=== PATIENT | male | born 1990 | race Caucasian/White ===

== ENCOUNTER 2018-05-12 23:17 | Emergency (ER) | payer BC ==
[~2018-05-12] VITALS: Ht 188 cm; Wt 95.3 kg
[2018-05-12 23:26] VITALS: BP 159/111
[2018-05-12] MEDS ORDERED: AUGMENTIN 875-125 TABLET PO STA (23:41)
--- NOTE | 2018-05-12 23:44 | ER.PDOC ---
General Chief Complaint: Earache Stated Complaint: EARACHE Time seen by MD: 23:41 Source: patient Exam Limitations: no limitations History of Present Illness Initial Comments Right earache for 1 week. Severity: moderate Location of Pain: (R) Ear Associated Symptoms: sharp earache Allergies: Coded Allergies: No Known Allergies (Unverified , 08/02/13) Home Meds No Active Prescriptions or Reported Meds Past Medical History Medical History: no pertinent history Surgical History: no surgical history Social History Smoking: non-smoker Alcohol Use: occassionally Drug Use: none Constitutional: no symptoms reported Ears: see HPI Mouth: no symptoms reported Throat: no symptoms reported Respiratory: no symptoms reported Cardiovascular: no symptoms reported Gastrointestinal: no symptoms reported All Other Systems: Reviewed and Negative Physical Exam General Appearance: alert, no distress Ears: auricle TM's: erythema (R(, dullness (fluid right ear) Mouth/Throat: lips/gums nml, pharynx nml Nose: nml inspection Head/Neck: atraumatic, neck nml inspection Eyes: eyes nml inspection, PERRL, no nystagmus Resp/CVS: no resp distress, lungs clear, heart sounds nml, reg. rate & rhythm Abdomen: non-tender, no organomegaly Skin Exam: Normal Color, Warm/Dry NEURO/PSYCH: oriented X3, mood/effect nml Departure Time of Disposition: 23:43 Disposition: 01 HOME, SELF-CARE Impression: Primary Impression: Otitis media Qualified Codes: H66.90 - Otitis media, unspecified, unspecified ear Condition: Stable Referrals: PCP,UNKNOWN (PCP) PRIMARY CARE PROVIDER Additional Instructions: Amoxil Cortisporin Otic Ibuprofen F/U with your PCP next week. Scripts No Active Prescriptions or Reported Meds Duration or Time Spent with Pa: 20 mins ADAM CHOWDHURY MD May 12, 2018 23:44
[2018-05-12] MEDS ORDERED: AUGMENTIN 875-125 TABLET ONE (23:49)
[2018-05-12 23:59] VITALS: BP 159/111
== END 2018-05-12 23:58 | disposition home or self-care (01) ==
LOC: ER 23:17
DX: H66.91 Otitis media, unspecified, right ear (principal)
CPT/HCPCS: 96361; 96374; 99283; 99285

== ENCOUNTER 2019-03-22 07:41 | Emergency (ER) | payer BC ==
[~2019-03-22] VITALS: Ht 188 cm; Wt 95.3 kg
[2019-03-22 07:56] VITALS: BP 177/106
--- NOTE | 2019-03-22 07:58 | ER.PDOC ---
General Chief Complaint: Earache Stated Complaint: RIGHT EAR PAIN Time seen by MD: 08:00 Source: patient Exam Limitations: no limitations History of Present Illness Timing/Duration: gradual Severity: mild Location of Pain: (R) Ear Associated Symptoms: dull earache Prior symptoms/Treatment: Similar symptoms previous Allergies: Coded Allergies: No Known Allergies (Unverified , 08/02/13) Home Meds No Active Prescriptions or Reported Meds Past Medical History Medical History: no pertinent history, other (OM) Surgical History: no surgical history Social History Smoking: non-smoker Alcohol Use: none Drug Use: none Reviewed Nursing Reviewed: Vital Signs, Abn. Noted All Other Systems: Reviewed and Negative Physical Exam Ears: auricle, external. canal nml TM's: erythema (R(, loss of landmarks (R), bulging of TM (R), fluid/blood behind TM (R) Mouth/Throat: lips/gums nml, pharynx nml Nose: nml inspection Head/Neck: atraumatic, neck nml inspection Eyes: eyes nml inspection, PERRL, no nystagmus Resp/CVS: no resp distress, lungs clear, heart sounds nml, reg. rate & rhythm Abdomen: non-tender, no organomegaly Skin Exam: Normal Color, Warm/Dry NEURO/PSYCH: oriented X3, mood/effect nml Results/Orders Results/Orders Vital Signs Date Time Temp Pulse Resp B/P (MAP) Pulse Ox O2 Delivery O2 Flow Rate FiO2 03/22/19 07:53 97.8 81 14 99 Room Air Course Sepsis Screening Results: Posi: POSITIVE SEPSIS RISK Duration or Total Time Spent w: 20 mins Vitals & review Data Vital Sign - Last 24 Hours 03/22/19 07:53 Temp 97.8 Pulse 81 Resp 14 Pulse Ox 99 O2 Delivery Room Air O2 Sat by Pulse Oximetry: 99 Departure Time of Disposition: 08:11 Disposition: 01 HOME, SELF-CARE Impression: Primary Impression: Otitis media Condition: Stable Referrals: PCP,UNKNOWN (PCP) PRIMARY CARE PROVIDER Scripts No Active Prescriptions or Reported Meds Duration or Time Spent with Pa: AMY JONES MD Mar 22, 2019 07:58
== END 2019-03-22 08:05 | disposition home or self-care (01) ==
LOC: ER 07:41
DX: H66.91 Otitis media, unspecified, right ear (principal)
CPT/HCPCS: 99283

== ENCOUNTER 2019-09-17 10:59 | Emergency (ER) | payer BC ==
[~2019-09-17] VITALS: Ht 188 cm; Wt 95.3 kg
[2019-09-17 11:20] VITALS: BP 139/86
[2019-09-17 11:24] VITALS: BP 139/86
--- NOTE | 2019-09-17 11:37 | ER.PDOC ---
General Chief Complaint: Earache Stated Complaint: COUGH,POSSIBLE EAR INFECTION L Time seen by MD: 11:15 Source: patient, family Exam Limitations: no limitations History of Present Illness Initial Comments ear pain, fever and cough x 4 days, pt states the cough is all the time the OTC cough medication is not working Timing/Duration: other Severity: moderate Associated Symptoms: fever/chills, earache, cough Allergies: Coded Allergies: No Known Allergies (Unverified , 08/02/13) Home Meds No Active Prescriptions or Reported Meds Constitutional: see HPI EENTM: see HPI Respiratory: see HPI Cardiovascular: no symptoms reported Gastrointestinal: no symptoms reported Genitourinary: no symptoms reported Musculoskeletal: no symptoms reported Skin: no symptoms reported Psychiatric/Neurological: no symptoms reported All Other Systems: Reviewed and Negative Past Medical History Medical History: no pertinent history Surgical History: no surgical history Social History Drug Use: none Physical Exam General Appearance: alert, mild distress Eye: eyes nml inspection Ear: TM erythema Nose: rhinorrhea Throat: pharynx nml, airway nml Neck: nml inspection, supple Respiratory: no resp.distress, breath sounds nml Abdomen: non-tender, no organomegaly CVS: reg rate & rhythm, heart sounds nml Skin: color nml, no rash, warm/dry Extremities: non-tender, nml ROM NEURO/PSYCH: oriented x 3, CN's nml as tested, motor nml, mood/affect nml Comments Coughing during exam Results/Orders Results/Orders Vital Signs Date Time Temp Pulse Resp B/P (MAP) Pulse Ox O2 Delivery O2 Flow Rate FiO2 09/17/19 11:24 98.1 82 18 139/86 (103) 98 Room Air 09/17/19 11:20 98.1 82 18 98 Departure Time of Disposition: 11:45 Disposition: 01 HOME, SELF-CARE Impression: Primary Impression: Otitis media Additional Impressions: Cough Acute upper respiratory infection Condition: Stable Patient Instructions: Otitis Media, Adult, [id number] Referrals: PCP,UNKNOWN (PCP) PRIMARY CARE PROVIDER Additional Instructions: Return if symptoms worsen. See PCP as needed. Amoxicillin 875mg take one tablet twice a day x 7 days 14 #. Promethazine DM take 5 ml every 6-8 hours as needed for cough x 5 days 120 ml [facility] No Active Prescriptions or Reported Meds Duration or Time Spent with Pa: 18 minutes Return to Work/School Can a patient return to work?: No Can a patient return to school: No Problem Qualifiers Primary Impression: Otitis media Otitis media type: unspecified nonsuppurative Laterality: bilateral Qualified Codes: H65.93 - Unspecified nonsuppurative otitis media, bilateral JOSE FRANCISCO REYNA NP Sep 17, 2019 11:37
== END 2019-09-17 11:40 | disposition home or self-care (01) ==
LOC: ER 10:59
DX: J06.9 Acute upper respiratory infection, unspecified (principal); H66.92 Otitis media, unspecified, left ear
CPT/HCPCS: 99283

== ENCOUNTER 2019-11-12 09:08 | Emergency (ER) | payer BC ==
[~2019-11-12] VITALS: Ht 188 cm; Wt 95.3 kg
[2019-11-12 09:20] VITALS: BP 150/98
[2019-11-12 09:50] VITALS: BP 150/98
--- NOTE | 2019-11-12 10:49 | DIREP ---
PROCEDURE:CHEST 2 VIEWS COMPARISON:None. INDICATIONS:Cough FINDINGS: LUNGS/PLEURA:The posterior costophrenic sulci are partially excluded on the lateral view. No significant pulmonary parenchymal abnormalities. No effusion or pneumothorax. VASCULATURE:Normal. Unremarkable pulmonary vasculature. CARDIAC:Normal. No cardiac silhouette abnormality or cardiomegaly. MEDIASTINUM:Normal. No visible mass or adenopathy. BONES:Normal. No fracture or visible bony lesion. OTHER:Negative. CONCLUSION: No acute cardiopulmonary abnormality. Dictated by: Kemal Williamson MD on 11/12/2019 at 10:48 AM
--- NOTE | 2019-11-12 11:11 | ER.PDOC ---
General Chief Complaint: Cough/Congestion Stated Complaint: COUGH/SORE THROAT Time seen by MD: 11:06 Source: patient Exam Limitations: no limitations History of Present Illness Initial Comments Cough, runny nose and sore throat for past few days. He works at the [employer] and has positive exposure to patients with COVID-19, no fever or chills. Timing/Duration: gradual Severity: moderate Associated Symptoms: runny nose, sore throat, cough Allergies: Coded Allergies: No Known Allergies (Unverified , 08/02/13) Home Meds No Active Prescriptions or Reported Meds Constitutional: no symptoms reported EENTM: see HPI Respiratory: see HPI Cardiovascular: no symptoms reported Gastrointestinal: no symptoms reported All Other Systems: Reviewed and Negative Past Medical History Medical History: no pertinent history Surgical History: no surgical history Social History Alcohol Use: none Drug Use: none Physical Exam General Appearance: alert, no distress Nose: nose nml Throat: pharynx nml, airway nml Neck: nml inspection, supple Respiratory: no resp.distress, breath sounds nml Abdomen: non-tender, no organomegaly CVS: reg rate & rhythm, heart sounds nml Skin: color nml, no rash, warm/dry Extremities: non-tender, nml ROM, no pedal edema NEURO/PSYCH: oriented x 3, CN's nml as tested, motor nml, sensation nml, mood/affect nml Results/Orders Results/Orders Orders - ADAM CHOWDHURY MD Influenza A&B (11/12/19 09:20) Strep Screen (11/12/19 09:20) Xr Chest 2v (11/12/19 09:20) Vital Signs Date Time Temp Pulse Resp B/P (MAP) Pulse Ox O2 Delivery O2 Flow Rate FiO2 11/12/19 09:50 98.0 99 16 150/98 (115) 98 Room Air 11/12/19 09:20 98.0 99 16 11/12/19 09:20 98.0 102 16 98 Laboratory Tests Test 11/12/19 09:30 Influenza Type A Antigen NEGATIVE (NEG) Influenza B Immunofluorescence NEGATIVE (NEG) Group A Streptococcus Screen NEGATIVE (NEGATIVE) Progress Progress State authorized COVID-19 testing. Departure Time of Disposition: 11:09 Disposition: 01 HOME, SELF-CARE Impression: Primary Impression: URI, acute Condition: Stable Referrals: PCP,UNKNOWN (PCP) PRIMARY CARE PROVIDER Additional Instructions: Mucinex DM OTC as directed Chloraseptic spray OTC as directed Self Quarantine at home until you are told the results of your COVID-19 testing Return to ED if worsening symptoms or concerns. Scripts No Active Prescriptions or Reported Meds Duration or Time Spent with Pa: 20 min ADAM CHOWDHURY MD Nov 12, 2019 11:11
--- NOTE | 2019-11-14 12:11 | NUR ---
COVID-19 TEST PATIENT NOTIFIED OF NEGATIVE RESULT ON HIS COVID-19 TEST.
== END 2019-11-12 11:20 | disposition home or self-care (01) ==
LOC: ER 09:08
DX: J06.9 Acute upper respiratory infection, unspecified (principal); Z20.828 Contact with and (suspected) exposure to other viral communicable diseases
CPT/HCPCS: 71046; 87070; 87804 ×2; 87880; 99284; U0001; 36415

== ENCOUNTER 2022-03-04 19:40 | Emergency (ER) | payer BC ==
[~2022-03-04] VITALS: Ht 188 cm; Wt 90.7 kg
[2022-03-04 19:48] VITALS: BP 157/93
--- NOTE | 2022-03-04 20:32 | ER.PDOC ---
General Chief Complaint: Cough/Congestion Stated Complaint: SINUS CONGESTION Time seen by MD: 20:11 Source: patient, RN notes reviewed History of Present Illness Initial Comments Patient is a 31-year-old white male presents to the ER with a couple month history of sinus infection. No known alleviating or worsening factors. Severity is moderate. He denies any fevers, chills, headaches, nausea, vomiting. Timing/Duration: gradual Severity: moderate Associated Symptoms: fever/chills Allergies: Coded Allergies: No Known Allergies (Unverified , 08/02/13) Home Meds No Active Prescriptions or Reported Meds Constitutional: no symptoms reported EENTM: no symptoms reported Respiratory: no symptoms reported Gastrointestinal: no symptoms reported Genitourinary: no symptoms reported Musculoskeletal: no symptoms reported All Other Systems: Reviewed and Negative Past Medical History Medical History: no pertinent history Surgical History: no surgical history Social History Alcohol Use: none Drug Use: none Reviewed Nursing Reviewed: Vital Signs, Abn. Noted, Nursing Assessment Physical Exam General Appearance: alert, no distress Eye: eyes nml inspection, lids & conjunct. nml, PERRL Nose: nose nml, rhinorrhea (maxillary sinus tenderness) Throat: pharynx nml, airway nml Neck: nml inspection Respiratory: no resp.distress, breath sounds nml CVS: heart sounds nml Skin: color nml, no rash, warm/dry Extremities: non-tender, nml ROM NEURO/PSYCH: oriented x 3, CN's nml as tested, motor nml, sensation nml Results/Orders Results/Orders Orders - JULIO BOYLE MD Covid19 Antigen Casandra Morse (03/04/22 19:43) Influenza A&B (03/04/22 19:43) Vital Signs Date Time Temp Pulse Resp B/P (MAP) Pulse Ox O2 Delivery O2 Flow Rate FiO2 03/04/22 19:48 98.4 90 16 157/93 (114) 99 Room Air* 0 21 03/04/22 19:48 98.4 90 16 99 03/04/22 19:48 98.4 90 16 Laboratory Tests Test 03/04/22 19:44 Influenza Type A Antigen NEGATIVE (NEG) Influenza Type B Antigen NEGATIVE (NEG) SARS-CoV-2 Antigen (Rapid) NEGATIVE (NEGATIVE) ER DEPART Departure Time of Disposition: 20:32 Disposition: 01 HOME / SELF CARE / HOMELESS Impression: Primary Impression: Acute sinusitis Condition: Stable Patient Instructions: Sinusitis, Child Referrals: PCP,UNKNOWN (PCP) PRIMARY CARE PROVIDER Scripts No Active Prescriptions or Reported Meds Duration or Time Spent with Pa: 11 JULIO BOYLE MD Mar 04, 2022 20:32
== END 2022-03-04 20:45 | disposition home or self-care (01) ==
LOC: ER 19:40
DX: J01.90 Acute sinusitis, unspecified (principal); Z20.822 Contact with and (suspected) exposure to COVID-19
CPT/HCPCS: 87426; 87804; 99283

== ENCOUNTER 2022-03-31 13:21 | Emergency (ER) | payer BC ==
[~2022-03-31] VITALS: Ht 188 cm; Wt 86.2 kg
[2022-03-31 13:21] VITALS: BP 167/99
--- NOTE | 2022-03-31 14:07 | NUR ---
ARRIVAL PATIENT ARRIVED TO [facility] AMBULATORY, C/O NASAL DRAINAGE FOR THE PAST 4 DAYS, WAS RECENTLY ON ANTIBIOTICS FOR A SINUS INFECTION AND THINKS THE SINUS INFECTIONS HAS RETURNED, CAME TO THE ED FOR EVAL, VITAL SIGNS TAKEN AND DOCTOR NOTIFIED OF PATIENT'S ARRIVAL.
[2022-03-31 14:55] VITALS: BP 131/61
--- NOTE | 2022-03-31 14:55 | ER.PDOC ---
General Chief Complaint: Eye Problems Stated Complaint: SINUS INFECTION Time seen by MD: 14:17 Source: patient Exam Limitations: no limitations History of Present Illness Timing/Duration: intermittent, other (for perhaps 3 months) Additional Context: Has what sounds like recurrent episodes of sinusitis, likely seasonal-allergy related, off and on for a few months. Has had a few courses of abx therefor, but symptoms return. Has had symptoms return Severity: moderate Prior symptoms/Treatment: Similar symptoms previous Allergies: Coded Allergies: No Known Allergies (Unverified , 08/02/13) Home Meds No Active Prescriptions or Reported Meds Constitutional: denies fever EENTM: see HPI (sinus congestion, multiple episodes over several months) Respiratory: cough, other (more sinus congestion than cough) Cardiovascular: no symptoms reported Gastrointestinal: no symptoms reported, blood streaked bowels; denies diarrhea Genitourinary: no symptoms reported Musculoskeletal: no symptoms reported Skin: no symptoms reported Endocrine: no symptoms reported Hematologic/Lymphatic: no symptoms reported All Other Systems: Reviewed and Negative Past Medical History Medical History: other (some recurrent episodes of sinusitis) Surgical History: other Family History Significant Family History: no pertinent family hx Social History Smoking: non-smoker Alcohol Use: none Drug Use: none Reviewed Nursing Reviewed: Vital Signs, Abn. Noted, Nursing Assessment Physical Exam General Appearance: alert, no distress Eye: eyes nml inspection Nose: nose nml Throat: airway nml Neck: supple Respiratory: breath sounds nml Abdomen: non-tender CVS: reg rate & rhythm Skin: color nml, no rash Extremities: non-tender NEURO/PSYCH: oriented x 3 Results/Orders Results/Orders Vital Signs Date Time Temp Pulse Resp B/P (MAP) Pulse Ox O2 Delivery O2 Flow Rate FiO2 03/31/22 14:55 98.3 96 18 131/61 (84) 98 Room Air* 0 21 03/31/22 13:21 98.3 89 18 98 03/31/22 13:21 98.3 89 18 03/31/22 13:21 98.3 89 18 167/99 (121) 98 Room Air* 0 21 Progress Progress I am not minded to do labs or to again prescribe abx. We will prescribe decongestants x 7 days and recommend f/u with ENT. ER DEPART Departure Time of Disposition: 14:54 Disposition: 01 HOME / SELF CARE / HOMELESS Impression: Primary Impression: Sinusitis Condition: Stable Patient Instructions: Sinusitis Referrals: PCP,UNKNOWN (PCP) PRIMARY CARE PROVIDER Additional Instructions: We don't recommend additional antibiotics unless your symptoms significantly worsen. Take the decongestants as directed, and follow up in clinic or, better, with ENT. Scripts No Active Prescriptions or Reported Meds Comments script for mucinex d written Duration or Time Spent with Pa: 10 JACKSON TATE MD Mar 31, 2022 14:55
== END 2022-03-31 14:56 | disposition home or self-care (01) ==
LOC: ER 13:21
DX: J32.9 Chronic sinusitis, unspecified (principal)
CPT/HCPCS: 99281; 99282

== ENCOUNTER 2022-05-10 11:39 | Emergency (ER) | payer BC ==
[~2022-05-10] VITALS: Ht 188 cm; Wt 90.7 kg
[2022-05-10 12:06] VITALS: BP 115/97
[2022-05-10 12:10] VITALS: BP 115/97
[2022-05-10 12:11] VITALS: BP 115/97
--- NOTE | 2022-05-10 12:53 | ER.PDOC ---
General Chief Complaint: Earache Stated Complaint: EAR PAIN Time seen by MD: 11:30 Source: patient Exam Limitations: no limitations History of Present Illness Initial Comments few days, getting worse no f/c/uri sxs no similar hx no swimming hx Timing/Duration: gradual Severity: moderate Location of Pain: (R) Ear Allergies: Coded Allergies: No Known Allergies (Unverified , 08/02/13) Home Meds No Active Prescriptions or Reported Meds Past Medical History Medical History: other Surgical History: no surgical history Social History Alcohol Use: none Drug Use: none Results/Orders Results/Orders Vital Signs Date Time Temp Pulse Resp B/P (MAP) Pulse Ox O2 Delivery O2 Flow Rate FiO2 05/10/22 12:11 98.9 99 18 99 05/10/22 12:10 98.9 99 18 115/97 (103) 99 Room Air* 0 21 05/10/22 12:06 98.9 99 18 ER DEPART Departure Time of Disposition: 12:52 Disposition: 01 HOME / SELF CARE / HOMELESS Impression: Primary Impression: Otalgia Condition: Stable Patient Instructions: Otalgia-Brief Referrals: PCP,UNKNOWN (PCP) PRIMARY CARE PROVIDER Additional Instructions: John Med nasal irrigation kit, OTC Zyrtec 10mg/day motrin f/u w PCP Scripts No Active Prescriptions or Reported Meds Duration or Time Spent with Pa: RENNY STEEN MD May 10, 2022 12:53
== END 2022-05-10 13:00 | disposition home or self-care (01) ==
LOC: ER 11:39
DX: H92.01 Otalgia, right ear (principal)
CPT/HCPCS: 99281